=== PATIENT | female | born 1995 | race Caucasian/White ===

== ENCOUNTER 2016-08-26 12:41 | Emergency (ER) | payer MEDICAID ==
[~2016-08-26] VITALS: Ht 170.2 cm; Wt 62.0 kg
[2016-08-26 12:47] VITALS: BP 135/98; PULSE 86; RESP 16; TEMP 98.2; O2SAT 97
[2016-08-26] MEDS ORDERED: SODIUM CHLOR 0.9% 1000 ML INJ 1,000 ML IV ONE (13:01)
[2016-08-26] MEDS ORDERED: BACT800T5 PO (13:04)
[2016-08-26] MEDS ORDERED: FLUCONAZOLE 100 MG TAB PO ONE (13:15)
[2016-08-26] MEDS ORDERED: LIDOCAINE HCL 2% JELLY 5 ML SYRINGE TOPICAL ONE (13:15)
[2016-08-26 13:30] LABS: BLOOD, URINE LARGE (NEG); GLUCOSE,URINE NEG (NEG); KETONE, URINE NEG (NEG); NITRITE,URINE NEG (NEG)
[2016-08-26 13:31] LABS: METHOD OF COLLECTION CLEAN CATCH; URINE COLOR YELLOW (YELLW/STRAW)
[2016-08-26 13:34] LABS: AUTOMATED NEUTROPHIL # 4.2 TH/MM3 (1.8-7.7); BASOPHIL % 0.5 % (0.0-2.0); EOSINOPHIL # 0.1 TH/MM3 (0-0.4); EOSINOPHIL % 1.2 % (0.0-4.0); HEMATOCRIT 38.9 % (35.0-46.0); HEMO FLAGS DIFF FINAL; LYMPHOCYTE # 1.5 TH/MM3 (1.0-4.8); MEAN CELL VOLUME 92.7 FL (80.0-100.0); MEAN CORPUSCULAR HEMOGLOBIN 31.1 PG (27.0-34.0); MEAN CORPUSCULAR HGB CONC 33.5 % (32.0-36.0); MONO % 9.3 % (0.0-8.0); PLATELET COUNT 198 TH/MM3 (150-450); RED CELL DISTRIBUTION WIDTH 12.1 % (11.6-17.2); WHITE BLOOD COUNT 6.4 TH/MM3 (4.0-11.0)
[2016-08-26 13:36] LABS: COMMENT (UR) CULTURE INDICATED; CULTURE IF INDICATED CULTURE INDICATED; RBC, URINE 100-200 /hpf (0-3); SQUAMOUS EPITHELIAL CELL URINE 0-5 /hpf (0-5)
[2016-08-26 13:42] LABS: POTASSIUM 3.8 MEQ/L (3.5-5.1)
[2016-08-26 13:45] LABS: BICARBONATE 23.6 MEQ/L (21.0-32.0)
[2016-08-26] MEDS ORDERED: CIPR-9 PO (14:08)
[2016-08-26] MEDS ORDERED: DIFL150T PO (14:09)
--- NOTE | 2016-08-26 14:09 | PD ---
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 She had an Explanon device removed in January and a Depo- Provera shot a couple weeks later. Since then vaginal bleeding has been present. She reports a recent diagnosis of UTI as well as a yeast infection currently. She tried Monistat 1 day 2 without benefit. She has had some diarrhea lately. 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 She is on day 10 of 10 for Bactrim. She reports constant pain. [facility] Past Medical History Diminished Hearing: No GERD: Yes Respiratory: Yes (asthma) Immunizations Current: Yes Tetanus Vaccination: < 5 Years Influenza Vaccination: No ?: Not LMP: 6 months ago to present Past Surgical History Oral Surgery: Yes Social History Alcohol Use: Yes (occ) Tobacco Use: No Substance Use: No Allergies-Medications (Allergen,Severity, Reaction): Coded Allergies: Latex (Verified Allergy, Intermediate, rash, 08/26/16) Reported Meds & Prescriptions Reported Meds & Active Scripts Active Diflucan (Fluconazole) 150 Mg Tab 150 Mg PO ONCE Cipro (Ciprofloxacin HCl) 500 Mg Tab 500 Mg PO BID 5 Days Reported Bactrim DS (Sulfamethoxazole-Trimethoprim) 800-160 Mg Tab 1 Tab PO BID Review of Systems Except as stated in HPI: all other systems reviewed are Neg General / Constitutional: No: Fever Physical Exam Narrative GENERAL: 20 yo F, pleasant, WNWD : Vulva normal. White discharge in vault. Diffuse tenderness. Mild CMT. SKIN: Warm and dry. HEAD: Atraumatic. Normocephalic. EYES: Pupils equal and round. No scleral icterus. No injection or drainage. ENT: No nasal bleeding or discharge. Mucous membranes pink and moist. NECK: Trachea midline. No JVD. CARDIOVASCULAR: Regular rate and rhythm. RESPIRATORY: No accessory muscle use. Clear to auscultation. Breath sounds equal bilaterally. GASTROINTESTINAL: Abdomen soft, non-tender, nondistended. Hepatic and splenic margins not palpable. MUSCULOSKELETAL: Extremities without clubbing, cyanosis, or edema. No obvious deformities. NEUROLOGICAL: Awake and alert. No obvious cranial nerve deficits. Motor grossly within normal limits. Five out of 5 muscle strength in the arms and legs. Normal speech. PSYCHIATRIC: Appropriate mood and affect; insight and judgment normal. Data Data Last Documented VS Vital Signs Date Time Temp Pulse Resp B/P Pulse Ox O2 Delivery O2 Flow Rate FiO2 08/26/16 12:47 98.2 86 16 135/98 97 VS reviewed Orders Complete Blood Count With Diff (08/26/16 13:01) Basic Metabolic Panel (Bmp) (08/26/16 13:01) Gc And Chlamydia Pcr (08/26/16 13:01) Wet Prep Profile (08/26/16 13:01) Urinalysis - C+S If Indicated (08/26/16 13:01) Iv Access Insert/Monitor (08/26/16 13:01) Sodium Chlor 0.9% 1000 Ml Inj (Ns 1000 M (08/26/16 13:01) Ed Urine Pregnancytest Poc (08/26/16 13:01) Fluconazole (Diflucan) (08/26/16 13:15) Lidocaine 2% Jelly (Xylocaine 2% Jelly) (08/26/16 13:15) Urine Culture (08/26/16 13:07) Azithromycin Powd Pack (Zithromax Powd P (08/26/16 14:15) Ceftriaxone Inj (Rocephin Inj) (08/26/16 14:15) Lidocaine 1% Inj (50 Ml) (Xylocaine 1% I (08/26/16 14:15) Ceftriaxone Inj (Rocephin Inj) (08/26/16 14:15) Labs Laboratory Tests Test 08/26/16 08/26/16 08/26/16 13:07 13:11 13:40 Urine Collection Type CLEAN CATCH Urine Color YELLOW Urine Turbidity CLOUDY Urine pH 6.0 Urine Specific [place] 1.020 Urine Protein 30 mg/dL Urine Glucose (UA) NEG mg/dL Urine Ketones NEG mg/dL Urine Occult Blood LARGE Urine Nitrite NEG Urine Bilirubin NEG Urine Leukocyte Esterase MOD Urine RBC 100-200 /hpf Urine WBC 9-14 /hpf Urine Squamous Epithelial 0-5 /hpf Cells Microscopic Urinalysis Comment CULTURE INDICATED White Blood Count 6.4 TH/MM3 Red Blood Count 4.20 MIL/MM3 Hemoglobin 13.0 GM/DL Hematocrit 38.9 % Mean Corpuscular Volume 92.7 FL Mean Corpuscular Hemoglobin 31.1 PG Mean Corpuscular Hemoglobin 33.5 % Concent Red Cell Distribution Width 12.1 % Platelet Count 198 TH/MM3 Mean Platelet Volume 8.5 FL Neutrophils (%) (Auto) 66.0 % Lymphocytes (%) (Auto) 23.0 % Monocytes (%) (Auto) 9.3 % Eosinophils (%) (Auto) 1.2 % Basophils (%) (Auto) 0.5 % Neutrophils # (Auto) 4.2 TH/MM3 Lymphocytes # (Auto) 1.5 TH/MM3 Monocytes # (Auto) 0.6 TH/MM3 Eosinophils # (Auto) 0.1 TH/MM3 Basophils # (Auto) 0.0 TH/MM3 CBC Comment DIFF FINAL Differential Comment Sodium Level 142 MEQ/L Potassium Level 3.8 MEQ/L Chloride Level 110 MEQ/L Carbon Dioxide Level 23.6 MEQ/L Anion Gap 8 MEQ/L Blood Urea Nitrogen 11 MG/DL Creatinine 0.94 MG/DL Estimat Glomerular Filtration 77 ML/MIN Rate Random Glucose 84 MG/DL Calcium Level 8.6 MG/DL Clue Cells (Wet Prep) NONE SEEN Vaginal Trichomonas (Wet Prep) NONE SEEN Vaginal Yeast (Wet Prep) NONE SEEN MDM Medical Decision Making Medical Screen Exam Complete: Yes Emergency Medical Condition: Yes Differential Diagnosis IUP, UTI, ectopic , ov torsion, appendicitis, TOA, cervicitis, BV, Trichomoniasis, ov cyst, hernia, mittelschmerz, pain from menstruation Narrative Course CBC & BMP Diagram 08/26/16 13:11 Urinalysis shows hematuria and UTI Negative 3 though probably nonspecific for yest Diagnosis Primary Impression: Vaginal bleeding Additional Impression: Cystitis Referrals: Jordana Whitaker MD 1 day Additional Instructions: You have a choice when it comes to health care, and we are glad that you chose [facility]. Hopefully, we have met your expectations on today's visit. You are welcome to return to [facility] at any time, as we are committed to meeting the health care needs of our community. Med/Other Pt SpecificInfo: Prescription(s) given Scripts Fluconazole (Diflucan)150 Mg [id number] Mg PO ONCE #1 TAB Ref 0 Prov:Eze Liriano MD 08/26/16 Ciprofloxacin (Cipro)500 Mg Cop910 Mg PO BID 5 Days Ref 0 Prov:Eze Liriano MD 08/26/16 Disposition: 01 DISCHARGE HOME Condition: Stable Eze Liriano MD Aug 26, 2016 14:09
[2016-08-26] MEDS ORDERED: AZITHROMYCIN PWD FOR SUSP 1 GM PACKET PO ONE (14:15)
[2016-08-26] MEDS ORDERED: cefTRIAXone INJ 1,000 MG in SODIUM CHLORIDE 0.9% INJ 100 ML IV ONE (14:15)
[2016-08-26] MEDS ORDERED: cefTRIAXone 250 MG VIAL IM ONE (14:15)
[2016-08-26] MEDS ORDERED: LIDOCAINE HCL 1% 50 ML VIAL IM ONE (14:15)
[2016-08-26 17:49] LABS: CHLAMYDIA PCR NOT DETECTED (NOT DETECT); NEISSERIA PCR NOT DETECTED (NOT DETECT)
== END 2016-08-26 15:27 | disposition home or self-care (01) ==
LOC: PHED 12:41
DX: N93.9 Abnormal uterine and vaginal bleeding, unspecified (principal); N30.90 Cystitis, unspecified without hematuria; N39.0 Urinary tract infection, site not specified; B37.9 Candidiasis, unspecified
CPT/HCPCS: 80048; 81001; 84703; 85025; 87086; 87210; 87491; 87591; 96361; 96365; 99284; J0696; J7030

== ENCOUNTER 2016-10-03 18:42 | Emergency (ER) | payer MEDICAID ==
[~2016-10-03] VITALS: Ht 170.2 cm; Wt 64.0 kg
[~2016-10-03 18:42] MED LIST: BACT800T5 PO; CIPR-9 PO; DIFL150T PO
[2016-10-03 19:14] VITALS: BP 108/72; PULSE 72; RESP 16; TEMP 98.7; O2SAT 100
--- NOTE | 2016-10-03 19:49 | PD ---
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 For the last 3 months she has been nauseated. Multiple home tests apparently have been negative. She denies any fever. She denies any dysuria, frequency or urgency. She denies any vaginal discharge. She does not have any primary care physician, hide buyer or insurance. She states she was on Explanon and then replaced it with Depakote shot. The Depakote shot is currently out of date. She is sexually active. [facility] Past Medical History Diminished Hearing: No GERD: Yes Respiratory: Yes (asthma) Immunizations Current: Yes ?: Not Past Surgical History Oral Surgery: Yes Social History Alcohol Use: Yes (occ) Tobacco Use: No Substance Use: No Allergies-Medications (Allergen,Severity, Reaction): Coded Allergies: Latex (Verified Allergy, Intermediate, rash, 10/03/16) Reported Meds & Prescriptions Reported Meds & Active Scripts Active Review of Systems Except as stated in HPI: all other systems reviewed are Neg Physical Exam Narrative GENERAL: The patient is alert, oriented 3 in minimal apparent distress with her pelvic discomfort. Her vital signs are normal. The patient was laughing when I entered the room and did not appear in any pain. SKIN: Focused skin assessment warm/dry. No skin rashes present. HEAD: Atraumatic. Normocephalic. EYES: Pupils equal and round. No scleral icterus. No injection or drainage. ENT: No nasal bleeding or discharge. Mucous membranes pink and moist. NECK: Trachea midline. No JVD. CARDIOVASCULAR: Regular rate and rhythm. No murmur appreciated. RESPIRATORY: No accessory muscle use. Clear to auscultation. Breath sounds equal bilaterally. GASTROINTESTINAL: Abdomen soft, with tenderness in the bilateral pelvis to direct palpation, nondistended. Hepatic and splenic margins not palpable. No guarding or rebound is present. MUSCULOSKELETAL: No obvious deformities. No clubbing. No cyanosis. No edema. NEUROLOGICAL: Awake and alert. No obvious cranial nerve deficits. Motor grossly within normal limits. Normal speech. PSYCHIATRIC: Appropriate mood and affect; insight and judgment normal. GENITOURINARY: Normal external genitalia without lesions or erythema. Vaginal vault without blood but no other drainage. Cervical os was closed without drainage. There is cervical motion tenderness and movement of the cervix completely reproduces the patient's pain. Uterus slightly tender and nonenlarged. Bilateral adnexa slightly tender without masses. Data Data Last Documented VS Vital Signs Date Time Temp Pulse Resp B/P Pulse Ox O2 Delivery O2 Flow Rate FiO2 10/03/16 19:14 98.7 72 16 108/72 100 Orders Beta Hcg (Quant/Titer) (10/03/16 19:36) Complete Blood Count With Diff (10/03/16 19:36) Basic Metabolic Panel (Bmp) (10/03/16 19:36) Urinalysis - C+S If Indicated (10/03/16 19:36) Gc And Chlamydia Pcr (10/03/16 19:56) Cath For Specimen (10/03/16 20:11) Labs Laboratory Tests Test 10/03/16 20:00 White Blood Count 8.6 TH/MM3 Red Blood Count 4.18 MIL/MM3 Hemoglobin 13.1 GM/DL Hematocrit 37.8 % Mean Corpuscular Volume 90.6 FL Mean Corpuscular Hemoglobin 31.3 PG Mean Corpuscular Hemoglobin 34.6 % Concent Red Cell Distribution Width 12.4 % Platelet Count 239 TH/MM3 Mean Platelet Volume 7.6 FL Neutrophils (%) (Auto) 71.1 % Lymphocytes (%) (Auto) 20.7 % Monocytes (%) (Auto) 6.9 % Eosinophils (%) (Auto) 0.7 % Basophils (%) (Auto) 0.6 % Neutrophils # (Auto) 6.0 TH/MM3 Lymphocytes # (Auto) 1.8 TH/MM3 Monocytes # (Auto) 0.6 TH/MM3 Eosinophils # (Auto) 0.1 TH/MM3 Basophils # (Auto) 0.1 TH/MM3 CBC Comment DIFF FINAL Differential Comment Urine Collection Type CATH Urine Color STRAW Urine Turbidity CLEAR Urine pH 6.5 Urine Specific [place] 1.011 Urine Protein NEG mg/dL Urine Glucose (UA) NEG mg/dL Urine Ketones NEG mg/dL Urine Occult Blood NEG Urine Nitrite NEG Urine Bilirubin NEG Urine Leukocyte Esterase TRACE Urine WBC 0-2 /hpf Urine Squamous Epithelial 0-5 /hpf Cells Urine Amorphous Sediment SMALL Microscopic Urinalysis Comment CATH-CULT NOT IND Sodium Level 141 MEQ/L Potassium Level 3.6 MEQ/L Chloride Level 107 MEQ/L Carbon Dioxide Level 24.8 MEQ/L Anion Gap 9 MEQ/L Blood Urea Nitrogen 11 MG/DL Creatinine 0.73 MG/DL Estimat Glomerular Filtration 103 ML/MIN Rate Random Glucose 84 MG/DL Calcium Level 8.6 MG/DL Human Chorionic Gonadotropin, LESS THAN 1 Quant MIU/ML MDM Medical Decision Making Medical Screen Exam Complete: Yes Emergency Medical Condition: Yes Medical Record Reviewed: Yes Interpretation(s) The urinalysis shows trace leukocyte esterase but is otherwise normal and culture is not indicated. The CBC is normal, the hemoglobin is 13.1. The basic metabolic profile is normal and the beta-hCG is less than 1. Differential Diagnosis Dysfunctional uterine bleeding, ectopic , anemia, electrolyte disorder , intrauterine , threatened AB Narrative Course The patient appears to have dysfunctional uterine bleeding. The bleeding is not significant enough to cause anemia. She should follow-up with a hide buyer as soon as possible. Diagnosis Primary Impression: Dysfunctional uterine bleeding Additional Instructions: As we discussed, it is necessary to follow-up with a hide buyer. You are not or anemic. We will give you a mandatory referral to a hide buyer. Med/Other Pt SpecificInfo: No Change to Meds Disposition: 01 DISCHARGE HOME Condition: Stable Arias Muhammad MD October 03, 2016 19:49
[2016-10-03 20:14] LABS: BASOPHIL # 0.1 TH/MM3 (0-0.2); BASOPHIL % 0.6 % (0.0-2.0); EOSINOPHIL # 0.1 TH/MM3 (0-0.4); EOSINOPHIL % 0.7 % (0.0-4.0); HEMATOCRIT 37.8 % (35.0-46.0); HEMO FLAGS DIFF FINAL; LYMPH % 20.7 % (9.0-44.0); LYMPHOCYTE # 1.8 TH/MM3 (1.0-4.8); MEAN CELL VOLUME 90.6 FL (80.0-100.0); MEAN CORPUSCULAR HEMOGLOBIN 31.3 PG (27.0-34.0); MEAN CORPUSCULAR HGB CONC 34.6 % (32.0-36.0); MONO % 6.9 % (0.0-8.0); NEUT % 71.1 % (16.0-70.0); PLATELET COUNT 239 TH/MM3 (150-450); RED BLOOD COUNT 4.18 MIL/MM3 (4.00-5.30); RED CELL DISTRIBUTION WIDTH 12.4 % (11.6-17.2); WHITE BLOOD COUNT 8.6 TH/MM3 (4.0-11.0)
[2016-10-03 20:18] LABS: BLOOD, URINE NEG (NEG); GLUCOSE,URINE NEG (NEG); KETONE, URINE NEG (NEG); NITRITE,URINE NEG (NEG); PH, URINE 6.5 (5.0-8.5)
[2016-10-03 20:26] LABS: CHLORIDE 107 MEQ/L (98-107); POTASSIUM 3.6 MEQ/L (3.5-5.1); SODIUM (NA) 141 MEQ/L (136-145)
[2016-10-03 20:29] LABS: ANION GAP 9 MEQ/L (5-15); BICARBONATE 24.8 MEQ/L (21.0-32.0); BLOOD UREA NITROGEN 11 MG/DL (7-18)
[2016-10-03 20:33] LABS: GLOMERULAR FILTRATION RATE 103 ML/MIN (>89)
[2016-10-03 20:37] LABS: BETA HCG QUANT LESS THAN 1 MIU/ML (0-5)
[2016-10-03 20:38] LABS: METHOD OF COLLECTION CATH; URINE COLOR STRAW (YELLW/STRAW)
[2016-10-03 20:39] LABS: SQUAMOUS EPITHELIAL CELL URINE 0-5 /hpf (0-5)
[2016-10-03 20:40] LABS: WBC, URINE 0-2 /hpf (0-5)
[2016-10-03 20:41] LABS: COMMENT (UR) CATH-CULT NOT IND; CULTURE IF INDICATED CATH CULTURE NOT IND
[2016-10-03] MEDS ORDERED: PROM25TA5 PO (20:57)
[2016-10-03 21:24] VITALS: BP 112/74
[2016-10-03 23:43] LABS: CHLAMYDIA PCR NOT DETECTED (NOT DETECT); NEISSERIA PCR NOT DETECTED (NOT DETECT)
== END 2016-10-03 21:29 | disposition home or self-care (01) ==
LOC: PHED 18:42
DX: N93.8 Other specified abnormal uterine and vaginal bleeding (principal); R10.2 Pelvic and perineal pain
CPT/HCPCS: 80048; 81001; 84702; 85025; 87491; 87591; 99284; P9612